=== PATIENT | female | born 1995 | race Caucasian/White ===

== ENCOUNTER 2016-08-09 14:36 | Emergency (ER) | payer SELFPAY ==
[~2016-08-09] VITALS: Ht 165.1 cm; Wt 68.0 kg
[2016-08-09 15:05] VITALS: BP 122/72
[2016-08-09] MEDS ORDERED: HYDR-971 PO (15:13)
[2016-08-09] MEDS ORDERED: MUPI22OI2 TP (15:13)
[2016-08-09] MEDS ORDERED: SULF1TAB23 PO (15:13)
--- NOTE | 2016-08-09 15:14 | PHYS DOC ---
Past Medical History Past Medical History: Asthma, Migraines Past Surgical History: No Surgical History Alcohol Use: None Drug Use: None, Methamphetamine Adult General Chief Complaint Chief Complaint: INSECT BITE [facility] HPI Patient is a 21 year old female who presents emergency room with a complaint of red swollen skin under her left buttock that been present for approximately 2 days. Patient has any injury to her skin. She denies any identified arthropod bites or stings. She denies any history of recurrent skin infections. She denies ] in the past 30 days. Patient has had a recent tattoo to her left forearm within the past 2 weeks. Review of Systems Review of Systems Constitutional: Denies fever or chills [] Eyes: Denies change in visual acuity, redness, or eye pain [] HENT: Denies nasal congestion or sore throat [] Respiratory: Denies cough or shortness of breath [] Cardiovascular: No additional information not addressed in HPI [] GI: Denies abdominal pain, nausea, vomiting, bloody stools or diarrhea [] : Denies dysuria or hematuria [] Musculoskeletal: Denies back pain or joint pain [] Integument: Denies rash or skin lesions [] Neurologic: Denies headache, focal weakness or sensory changes [] Endocrine: Denies polyuria or polydipsia [] Allergies Allergies Allergies Coded Allergies Type Severity Reaction Last Updated Verified egg Allergy Mild vomitng 05/11/14 Yes wheat Allergy Mild vomiting 05/11/14 Yes Physical Exam Physical Exam Constitutional: Well developed, well nourished, no acute distress, non-toxic appearance. Patient is afebrile. HENT: Normocephalic, atraumatic, bilateral external ears normal, oropharynx moist, no oral exudates, nose normal. [] Eyes: PERRLA, EOMI, conjunctiva normal, no discharge. [] Neck: Normal range of motion, no tenderness, supple, no stridor. [] Cardiovascular:Heart rate regular rhythm, no murmur [] Lungs & Thorax: Bilateral breath sounds clear to auscultation [] Abdomen: Bowel sounds normal, soft, no tenderness, no masses, no pulsatile masses. [] Skin: Subcentimeter indurated lesion underneath patient's left buttock with mild surrounding erythema. There is no fluctuant pocket or purulent drainage. There is no apparent abscess at this time it requires I&D. Back: No tenderness, no CVA tenderness. [] Extremities: No tenderness, no cyanosis, no clubbing, ROM intact, no edema. [] Neurologic: Alert and oriented X 3, normal motor function, normal sensory function, no focal deficits noted. [] Psychologic: Affect normal, judgement normal, mood normal. [] EKG EKG [] Radiology/Procedures Radiology/Procedures [] Course & Med Decision Making Course & Med Decision Making Pertinent Labs and Imaging studies reviewed. (See chart for details) [] Dragon Disclaimer Dragon Disclaimer This electronic medical record was generated, in whole or in part, using a voice recognition dictation system. Departure Departure Impression: Primary Impression: Cellulitis Disposition: HOME, SELF-CARE Condition: GOOD Referrals: DEE DEE TREVINO DO (PCP) Patient Instructions: Cellulitis, [id number] Additional Instructions: 1. As discussed, there is no evidence of an abscess that needs to be opened at this time. 2. Review the discharge paperwork provided for self-care and reasons to return to the emergency department. 3. Take the medication as prescribed. Apply warm compresses to the area every 2 hours for 20-30 minutes at a time. Avoid squeezing or pushing on the areas much as possible. 4. Follow-up with a primary care doctor next week for reevaluation. If you do not have one, then use the pamphlet provided for assistance in finding one. Scripts Hydrocodone/Apap 5-325 ([place] 5-325 Tablet)1 Each Tablet1 Tab PO PRN Q6HRS PRN PAIN #15 TAB Ref 0 Prov:SCOOBY FUENTES 08/09/16 Mupirocin (Mupirocin Ointment)22 Gm Oint...g.1 Nathalie TP TID WOUND CARE #1 TUBE Prov:SCOOBY FUENTES 08/09/16 Sulfamethoxazole/Trimethoprim (Bactrim 400-80 Mg Tablet)1 Each Tablet1 Tab PO BID #20 TAB Prov:SCOOBY FUENTES 08/09/16 SCOOBY FUENTES Aug 09, 2016 15:14
== END 2016-08-09 15:27 | disposition home or self-care (01) ==
LOC: ER 14:36
DX: L03.317 Cellulitis of buttock (principal); J45.909 Unspecified asthma, uncomplicated; G43.909 Migraine, unspecified, not intractable, without status migrainosus; F15.10 Other stimulant abuse, uncomplicated; Z91.018 Allergy to other foods; Z91.012 Allergy to eggs
CPT/HCPCS: 99283

== ENCOUNTER 2016-12-05 15:06 | Emergency (ER) | payer SELFPAY ==
[~2016-12-05] VITALS: Ht 165.1 cm; Wt 68.0 kg
[~2016-12-05 15:06] MED LIST: HYDR-971 PO; MUPI22OI2 TP; SULF1TAB23 PO
[2016-12-05 15:28] VITALS: BP 132/81
--- NOTE | 2016-12-05 15:53 | PHYS DOC ---
Past Medical History Past Medical History: Asthma, Migraines Past Surgical History: No Surgical History Alcohol Use: None Drug Use: Methamphetamine Adult General Chief Complaint Chief Complaint: TEST [facility] HPI Patient is a 21 year old female presents emergency department stating that she has taken 6 home test today in which they were all positive. patient states that she is wanting to know how far along she is. She denies any abdominal pain, nausea vomiting or any vaginal discharge. Patient does state that this is her first denies any spontaneous abortions in the past. She states that she is taking vitamins which she is purchased over-the- counter. She denies having an [employer]. Review of Systems Review of Systems Constitutional: Denies fever or chills [] Eyes: Denies change in visual acuity, redness, or eye pain [] HENT: Denies nasal congestion or sore throat [] Respiratory: Denies cough or shortness of breath [] Cardiovascular: No additional information not addressed in HPI [] GI: Denies abdominal pain, nausea, vomiting, bloody stools or diarrhea [] : Denies dysuria or hematuria [] Musculoskeletal: Denies back pain or joint pain [] Integument: Denies rash or skin lesions [] Neurologic: Denies headache, focal weakness or sensory changes [] Endocrine: Denies polyuria or polydipsia [] Patient states that she is here to obtain a test. Allergies Allergies Allergies Coded Allergies Type Severity Reaction Last Updated Verified egg Allergy Mild vomitng 05/11/14 Yes wheat Allergy Mild vomiting 05/11/14 Yes Physical Exam Physical Exam Constitutional: Well developed, well nourished, no acute distress, non-toxic appearance. [] HENT: Normocephalic, atraumatic, bilateral external ears normal, oropharynx moist, no oral exudates, nose normal. [] Eyes: PERRLA, EOMI, conjunctiva normal, no discharge. [] Neck: Normal range of motion, no tenderness, supple, no stridor. [] Cardiovascular:Heart rate regular rhythm, no murmur [] Lungs & Thorax: Bilateral breath sounds clear to auscultation [] Abdomen: Bowel sounds normal, soft, no tenderness, no masses, no pulsatile masses. [] Skin: Warm, dry, no erythema, no rash. [] Back: No tenderness Extremities: No tenderness, no cyanosis, no clubbing, ROM intact, no edema. [] Neurologic: Alert and oriented X 3, normal motor function, normal sensory function, no focal deficits noted. [] Psychologic: Affect normal, judgement normal, mood normal. [] Current Patient Data Vital Signs Vital Signs Date Time Temp Pulse Resp B/P (MAP) Pulse Ox O2 Delivery O2 Flow Rate FiO2 12/05/16 15:28 98.8 69 18 99 Room Air 98.8 EKG EKG [] Radiology/Procedures Radiology/Procedures [] Course & Med Decision Making Course & Med Decision Making Pertinent Labs and Imaging studies reviewed. (See chart for details) Patient's test was positive. She was recommended to follow-up with Dr. Bullock for further evaluation. Also explained to patient that ultrasound would also be able to provide the information needed as to how far along she is. However at this time she is too early for an ultrasound to be obtained. Once again patient denies any abdominal pain, she denies any vaginal discharge. Patient will be discharged home in stable condition signs and symptoms to return back to the emergency department as been provided. [] Dragon Disclaimer Dragon Disclaimer This electronic medical record was generated, in whole or in part, using a voice recognition dictation system. Departure Departure Impression: Primary Impression: Disposition: 01 HOME, SELF-CARE Condition: STABLE Referrals: NO PCP (PCP) PAT BULLOCK Jr, MD Patient Instructions: Additional Instructions: Activity as tolerated Continue to take vitamins as prescribed Drink plenty of fluids Avoid caffeine, alcohol and recreational drugs if you use them Followup with [employer] in the next 1-2 weeks Return to emergency department for any signs and symptoms that become worse. MATTHEW PEÑALOZA RESIDENT MEDICAL OFFICER Dec 05, 2016 15:53
== END 2016-12-05 16:00 | disposition home or self-care (01) ==
LOC: ER 15:06
DX: Z32.01 Encounter for pregnancy test, result positive (principal); F15.10 Other stimulant abuse, uncomplicated; Z91.012 Allergy to eggs; Z91.018 Allergy to other foods
CPT/HCPCS: 81025; 99282